=== PATIENT | male | born 1995 | race Caucasian/White ===

== ENCOUNTER 2017-09-11 16:27 | Emergency (ER) | payer OTHER, MEDICAID ==
--- NOTE | 2017-09-11 18:06 | ER Document Report ---
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 States that he try to stay hydrated but it is very hot outside and he has developed diffuse muscle cramping in the absence of any recent fevers or. He has had several episodes of nonbloody nonbilious emesis in the emergency department he states this has happened in the past and he was provided IV fluids. I have greeted and performed a rapid initial assessment of this patient. A comprehensive ED assessment and evaluation of the patient, analysis of test results and completion of the medical decision making process will be conducted by additional ED providers. PHYSICAL EXAMINATION: GENERAL: Tremulous, closed very dirty with asphalt HEAD: Atraumatic, normocephalic. EYES: Pupils equal round extraocular movements intact, conjunctiva are normal. ENT: Nares patent NECK: Normal range of motion LUNGS: No respiratory distress Musculoskeletal: Normal range of motion NEUROLOGICAL: Normal speech, normal gait. PSYCH: Normal mood, normal affect. SKIN: Warm, Dry TRAVEL OUTSIDE OF THE [place] IN LAST 30 DAYS: No - Related Data Allergies/Adverse Reactions: No Known Allergies Allergy (Verified 10/28/14 18:17) Past Medical History - Social History Chew tobacco use (# tins/day): No Frequency of alcohol use: None Drug Abuse: None Renal/ Medical History: Denies: Hx Peritoneal Dialysis Past Surgical History: Reports: Hx Appendectomy, Hx Cholecystectomy - Immunizations Immunizations up to date: Yes Physical Exam - Vital signs Vitals: Temp Pulse Resp BP Pulse Ox 97.6 F 70 20 139/94 H 97 09/11/17 16:37 09/11/17 16:37 09/11/17 16:37 09/11/17 16:37 09/11/17 16:37 Course - Vital Signs Vital signs: Temp Pulse Resp BP Pulse Ox 97.6 F 70 20 139/94 H 97 09/11/17 16:37 09/11/17 16:37 09/11/17 16:37 09/11/17 16:37 09/11/17 16:37 Doctor's Discharge - Discharge Referrals: CAMELIA MCKENNA FNP [Primary Care Provider] - Follow up as needed
[2017-09-11] MEDS: RINGERS SOLUTION,LACTATED 1,000 ML IV PRN ×2 (18:44→20:00)
[2017-09-11 19:14] LABS: HEMOGLOBIN 19.3 g/dL (13.5-17.0); MEAN CORPUSCULAR HEMOGLOBIN 30.6 pg (27.0-33.4); MEAN CORPUSCULAR HGB CONC 34.3 g/dL (32.0-36.0); MEAN CORPUSCULAR VOLUME 89 fl (80-97); PLATELET COUNT 391 10^3/uL (150-450); RED BLOOD COUNT 6.31 10^6/uL (4.35-5.55); RED CELL DISTRIBUTION WIDTH 12.9 % (11.5-14.0); WHITE BLOOD COUNT 26.4 10^3/uL (4.0-10.5)
[2017-09-11 19:15] LABS: HEMATOCRIT 56.4 % (37.9-51.0)
[2017-09-11 19:32] LABS: ABSOLUTE LYMPHOCYTES# (MANUAL) 3.4 10^3/uL (0.5-4.7); ABSOLUTE MONOCYTES # (MANUAL) 1.3 10^3/uL (0.1-1.4); ABSOLUTE NEUTROPHILS# (MANUAL) 21.6 10^3/uL (1.7-8.2); BAND NEUTROPHILS % (MANUAL) 5 % (3-5); BASOPHILS % (MANUAL) 0 % (0-2); EOSINOPHILS % (MANUAL) 0 % (0-6); LYMPHOCYTES % (MANUAL) 13 % (13-45); MONOCYTES % (MANUAL) 5 % (3-13); SEGMENTED NEUTROPHILS % (MAN) 77 % (42-78); TOTAL CELLS COUNTED 100
[2017-09-11 19:33] LABS: OVALOCYTES SLIGHT; POIKILOCYTOSIS SLIGHT
[2017-09-11 19:34] LABS: PLATELET COMMENT ADEQUATE; PLATELET LARGE PRESENT
[2017-09-11] MEDS ORDERED: ONDANSETRON 4 MG TAB.RAPDIS ONE (20:02)
[2017-09-11 20:37] LABS: ALANINE AMINOTRANSFERASE 26 U/L (10-40); ALKALINE PHOSPHATASE 88 U/L (65-260); ASPARTATE AMINO TRANSFERASE 42 U/L (10-45); BILIRUBIN,DIRECT 0.5 mg/dL (0.0-0.4); BILIRUBIN,TOTAL 0.9 mg/dL (0.2-1.3); BLOOD UREA NITROGEN 25 mg/dL (7-20); CALCIUM 11.4 mg/dL (8.4-10.2); CREATINE KINASE 824 U/L (55-170); GLUCOSE 100 mg/dL (75-110); POTASSIUM 4.7 mmol/L (3.6-5.0); TOTAL PROTEIN 10.5 g/dL (6.3-8.2)
[2017-09-11 20:42] LABS: CARBON DIOXIDE 26 mmol/L (22-30); CHLORIDE 91 mmol/L (98-107); SODIUM 140.1 mmol/L (137-145)
[2017-09-11 21:17] LABS: APPEARANCE,URINE SLIGHTLY-CLOUDY; BILIRUBIN,URINE NEGATIVE (NEGATIVE); COLOR,URINE YELLOW; GLUCOSE, URINE NEGATIVE (NEGATIVE); KETONES,URINE NEGATIVE (NEGATIVE); LEUKOCYTE ESTERASE,URINE NEGATIVE (NEGATIVE); NITRITE,URINE NEGATIVE (NEGATIVE); PROTEIN,URINE 100 mg/dL (NEGATIVE); URINE SPECIFIC GRAVITY 1.015
[2017-09-11] MEDS ORDERED: NORMAL SALINE 1000 ML 1,000 ML IV ONE (21:18)
[2017-09-11 21:20] LABS: ALBUMIN 6.5 g/dL (3.7-5.6); ANION GAP 23 (5-19)
--- NOTE | 2017-09-11 22:15 | ER Document Report ---
ED General - General Chief Complaint: Heat Exposure Stated Complaint: BODY CRAMPS Time Seen by Provider: 09/11/17 17:52 TRAVEL OUTSIDE OF THE [place] IN LAST 30 DAYS: No - HPI Patient complains to provider of: Body cramps heat exposure Notes: Patient states he has been working outside and also plays soccer the other day he has had extensive cramping similar to his previous visit here to the ER. Patient was seen in triage and IV fluids have already been ordered. Patient states with minimal fluid he has gotten approximately 400 cc he is feeling a lot better. Patient states he has been hydrating with Gatorade and other fluids containing lites lites along with water. Denies any medical problems. Patient resting comfortably slightly sunburned however no obvious distress - Related Data Allergies/Adverse Reactions: No Known Allergies Allergy (Verified 10/28/14 18:17) Past Medical History - Social History Smoking Status: Never Smoker Chew tobacco use (# tins/day): No Frequency of alcohol use: None Drug Abuse: None Family History: Reviewed & Not Pertinent Patient has suicidal ideation: No Patient has homicidal ideation: No Renal/ Medical History: Denies: Hx Peritoneal Dialysis Past Surgical History: Reports: Hx Appendectomy, Hx Cholecystectomy - Immunizations Immunizations up to date: Yes Review of Systems - Review of Systems Constitutional: No symptoms reported EENT: No symptoms reported Cardiovascular: No symptoms reported Respiratory: No symptoms reported Gastrointestinal: No symptoms reported Genitourinary: No symptoms reported Male Genitourinary: No symptoms reported Musculoskeletal: Other - Muscle cramping Skin: No symptoms reported Hematologic/Lymphatic: No symptoms reported Neurological/Psychological: No symptoms reported -: Yes All other systems reviewed and negative Physical Exam - Vital signs Vitals: Temp Pulse Resp BP Pulse Ox 97.6 F 70 20 139/94 H 97 09/11/17 16:37 09/11/17 16:37 09/11/17 16:37 09/11/17 16:37 09/11/17 16:37 Interpretation: Normal - General General appearance: Appears well, Alert - HEENT Head: Normocephalic, Atraumatic Eyes: Normal Pupils: PERRL - Respiratory Respiratory status: No respiratory distress Chest status: Nontender Breath sounds: Normal Chest palpation: Normal - Cardiovascular Rhythm: Regular Heart sounds: Normal auscultation Murmur: No - Abdominal Inspection: Normal Distension: No distension Bowel sounds: Normal Tenderness: Nontender Organomegaly: No organomegaly - Back Back: Normal, Nontender - Extremities General upper extremity: Normal inspection, Nontender, Normal color, Normal ROM , Normal temperature General lower extremity: Normal inspection, Nontender, Normal color, Normal ROM , Normal temperature, Normal weight bearing. No: Yaya's sign - Neurological Neuro grossly intact: Yes Cognition: Normal Orientation: AAOx4 [place] Coma Scale Eye Opening: Spontaneous Katerina Coma Scale Verbal: Oriented [place] Coma Scale Motor: Obeys Commands Katerina Coma Scale Total: 15 Speech: Normal Motor strength normal: LUE, RUE, LLE, RLE Sensory: Normal - Psychological Associated symptoms: Normal affect, Normal mood - Skin Skin Temperature: Warm Skin Moisture: Dry Skin Color: Normal, Other - Slight sunburn Course - Re-evaluation Re-evalutation: 09/11/17 23:07 Patient does have a leukocytosis that is otherwise nonspecific however patient does have elevation in his BUN and creatinine. Slight elevation in CK patient was given multiple liters of fluid here and then was able to urinate give us a urine sample and continue to urinate. Patient is able tolerate p.o. here. More likely the lab abnormalities are just due to dehydration recommended to the patient next 24 hours without any sign exposure to rest at home and hydrate. Patient states understanding continue to drink fluids containing electrolytes and water. Otherwise no other concerning etiology patient will be discharged home - Vital Signs Vital signs: Temp Pulse Resp BP Pulse Ox 97.8 F 60 18 132/68 H 98 09/11/17 22:22 09/11/17 22:22 09/11/17 22:22 09/11/17 22:22 09/11/17 22:22 - Laboratory Result Diagrams: 09/11/17 18:50 09/11/17 19:55 Laboratory results interpreted by me: 09/11/17 09/11/17 09/11/17 18:50 19:55 20:40 WBC 26.4 H RBC 6.31 H Hgb 19.3 H Hct 56.4 H Abs Neuts (Manual) 21.6 H Chloride 91 L Anion Gap 23 H BUN 25 H Creatinine 1.87 H Est GFR ( Amer) 57 L Est GFR (Non-Af Amer) 47 L Calcium 11.4 H Magnesium 2.9 H Direct Bilirubin 0.5 H Creatine Kinase 824 H Total Protein 10.5 H Albumin 6.5 H Urine Protein 100 H Urine Blood MODERATE H Urine Urobilinogen 2.0 H Discharge - Discharge Clinical Impression: Dehydration Condition: Good Disposition: HOME, SELF-CARE Instructions: Dehydration ([facility]) Additional Instructions: No physical activity extrinsic to be outside for next 24 hours. Follow-up with your primary care physician please continue hydrating at home. Forms: Return to Work Referrals: CAMELIA MCKENNA FNP [NO LOCAL MD] - Follow up as needed
[2017-09-11 22:24] VITALS: BP 132/68
== END 2017-09-11 22:22 | disposition home or self-care (01) ==
LOC: ER 16:27
DX: E86.0 Dehydration (principal); M79.1 Myalgia; Z90.49 Acquired absence of other specified parts of digestive tract
CPT/HCPCS: 99284; 96360; 96361; 36415; 82550; 83735; 85025; 80053; 81001; S0119; J7030; J7120